=== PATIENT | male | born 1955 | race Caucasian/White ===

== ENCOUNTER 2022-11-01 21:19 | Emergency (ER) | payer MEDICARE, OTHER, SELFPAY ==
[2022-11-01 21:20] VITALS: BP 94/78; PULSE 114; RESP 18; TEMP 36.2; O2SAT 97; BMI 26.4
[2022-11-01 21:22] VITALS: BP 94/78; PULSE 114; RESP 16; TEMP 36.2; O2SAT 97
--- NOTE | 2022-11-01 21:55 | EDS_ITS ---
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 He presents because of foreign body sensation in mucousy drainage right eye. He denies photophobia. He denies pain in his eye. He had sensation of something in his eye. He denies any auditory symptoms. He denies upper respiratory infectious symptoms. He denies history of glaucoma. Prior similar symptoms: No Recent Illness/Hospitalization: No PFSH PFSH Allergy/AdvReac Type Severity Reaction Status Date / Time No Known Allergies Allergy Verified 11/01/22 21:20 Social History (Updated 11/01/22 @ 22:[address] Mikey Callahan MD) Smoking Status: Never smoker substance use type: does not use ROS ROS ED Constitutional Constitutional ED: Denies chills, fever(s), subjective, sweats or weight loss Eyes Eyes: Denies blurry vision, change in vision or diplopia ENT ENT ED: Denies ear pain, rhinorrhea or sore throat Cardiovascular Cardiovascular: Denies chest pain or palpitations Respiratory/Chest Respiratory/Chest: Denies cough, dyspnea or dyspnea on exertion Gastrointestinal Gastrointestinal: Denies nausea or vomiting Neurologic Neurologic: Reports other Details: Facial dystonia due to Parkinson's disease ; Denies headache(s), paresthesias or weakness Hematologic/Lymphatic Hematologic/Lymphatic: Denies easy bleeding or easy bruising EXAM Physical Exam Const Vital Signs: 11/01/22 21:20 11/01/22 21:22 Temperature 97.2 F L 97.2 F L Temperature Source Temporal Temporal Pulse Rate 114 H 114 H Respiratory Rate 18 16 Blood Pressure 94/78 94/78 Blood Pressure Mean 83 83 Pulse Ox 97 97 Oxygen Delivery Method Room Air Room Air Positive well nourished and well developed General Appearance ED: well developed HEENT Reports other HEENT Narrative: Facial dystonia atraumatic and other Nose: external nose normal Eyes Eyes Narrative: Pupils equal round reactive. Extraocular is intact. Sclera is anicteric. Conjunctive a is injected right greater than left. There is slight mucoid discharge noted on the right. There is no matting of the eyelashes. There is no swelling of the upper or lower lid. There is no abnormality of the lacrimal apparatus or tear duct. There is no evidence of preseptal cellulitis. There is no preauricular lymphadenopathy. Neck no lymphadenopathy, supple and no JVD Resp normal respiratory effort, no retractions, no use of accessory muscles and clear to auscultation bilaterally Cardio regular rate, regular rhythm, S1 normal heart sound and S2 normal heart sound Back/Spine no CVA tenderness Extremity normal to inspection Neuro oriented x3 and CN's II-XII intact bilaterally Sensorium / Orientation: alert Skin no wounds Lesions: no lesions Rashes: no rashes MDM MDM MDM Narrative Medical decision making narrative: This may represent corneal abrasion, with no photophobia to direct or consensual light doubt corneal abrasion or iritis. Tetracaine, fluorescein and slit-lamp was ordered. Visual acuity was also ordered. Eyes were anesthetized with tetracaine and stained with foreseen. There was no uptake noted under slit-lamp examination. There is no corneal abrasion. There is no flare cells and of the anterior chamber. Patient now has drainage and injected conjunctive a on the left which is new from when he presented. He does have discharge noted bilaterally. We will treat with ophthalmic drops. He does not wear contacts. Discharge Plan Triage Chief Complaint: Eye Problem ED Provider: Mikey Callahan Dx/Rx/DC Orders Clinical Impression: Acute conjunctivitis, bilateral Instructions: ED Conjunctivitis, Viral Primary Care Provider: ANGELA BROWN Referrals: [facility] [place] Doctor,Out of [Non-Staff] - 3-5 Days if not improving Activity Restrictions/Additional Instructions: Instill 1 drop of the antibiotic drop every 2-4 hours while awake for the next 7 days. Disposition Disposition: Home, Self Care
[2022-11-01] MEDS: Ciprofloxacin 0.3% 2.5ml Bottle 1 DRP EACH EYE (23:37)
[2022-11-01] MEDS: Tetracaine 0.5% Ophthalmic Bottle 1 DRP EACH EYE (23:37)
[2022-11-01] MEDS: Fluorescein 1 MG STRIP 1 STRIP EACH EYE (23:37)
== END 2022-11-01 23:38 | disposition home or self-care (01) ==
PROVIDERS: Emergency Provider Emergency Medicine; Visit Provider Emergency Medicine
DX: H10.33 Unspecified acute conjunctivitis, bilateral (principal); G20 Parkinson's disease; G24.9 Dystonia, unspecified
CPT/HCPCS: 99282